=== PATIENT | male | born 2000 | race Two or more races ===

== ENCOUNTER 2023-12-12 07:12 | Inpatient (IN) | payer SELFPAY ==
[~2023-12-12] VITALS: Ht 182.9 cm; Wt 80.6 kg
[2023-12-12 07:50] LABS: BASOPHILS % (AUTO) 2.5 % (0.0-2.0); EOSINOPHILS % (AUTO) 0.7 % (1.0-6.0); HEMATOCRIT 44.9 % (41-53); HEMOGLOBIN 15.5 g/dL (13.5-17.5); LYMPHOCYTES # (AUTO) 1.3 K/uL (1.0-4.8); MEAN CORPUSCULAR HEMOGLOBIN 31.7 pg (26.0-34.0); MEAN CORPUSCULAR HGB CONC 34.6 G/dL (31.0-37.0); MEAN CORPUSCULAR VOLUME 92 fL (80-100); MONOCYTES # (AUTO) 0.4 K/uL (0.1-1.0); MONOCYTES % (AUTO) 6.5 % (2.0-9.0); NEUTROPHILS # (AUTO) 4.9 K/uL (1.8-7.7); NEUTROPHILS % (AUTO) 71.3 % (40.0-70.0); PLATELET COUNT (AUTO) 207 K/uL (150-450); RED CELL DISTRIBUTION WIDTH 12.9 % (11.5-14.5); WHITE BLOOD COUNT (AUTO) 6.9 K/uL (4.5-11.0)
[2023-12-12 08:00] LABS: ANION GAP 14 mmol/L (8-16); CALCIUM, TOTAL 8.9 mg/dL (8.8-10.5); CARBON DIOXIDE 24 mmol/L (22-29); CHLORIDE 105 mmol/L (98-107); CREATININE 0.92 mg/dL (0.60-1.30); GLOMERULAR FILTR. RATE CALC > 60 mL/min (>60); GLUCOSE,RANDOM 111 mg/dL (70-110); POTASSIUM 3.6 mmol/L (3.5-5.1); SODIUM SERUM 143 mmol/L (136-145); UREA NITROGEN, BLOOD 4 mg/dL (7-18)
[2023-12-12 08:04] LABS: ALCOHOL, URINE DRUG SCREEN POSITIVE (NEGATIVE); AMPHET/METH SCREEN,URINE NEGATIVE (NEGATIVE); BARBITURATE SCREEN, URINE NEGATIVE (NEGATIVE); BENZODIAZEPINES SCREEN,URINE NEGATIVE (NEGATIVE); CANNABINOID SCREEN,URINE POSITIVE (NEGATIVE); COCAINE SCREEN,URINE POSITIVE (NEGATIVE); METHADONE SCREEN, URINE NEGATIVE (NEGATIVE); OPIATE SCREEN,URINE NEGATIVE (NEGATIVE); PHENCYCLIDINE SCREEN,URINE NEGATIVE (NEGATIVE)
[2023-12-12 08:13] LABS: ALCOHOL, BLOOD (SERUM) 197 mg/dL (0-10)
[2023-12-12 08:50] LABS: COVID AG,FIA SOURCE NASAL SWAB
[2023-12-12 09:10] LABS: SARS-COV2 (COVID) ANTIGEN,FIA Negative (Negative)
[2023-12-12] MEDS ORDERED: ZOLPIDEM TARTRATE 10 MG TABLET PO PRN (10:45)
[2023-12-12] MEDS ORDERED: HALOPERIDOL 5 MG TABLET PO PRN (10:45)
[2023-12-12] MEDS ORDERED: LORazepam 2 MG TABLET PO PRN (10:45)
[2023-12-12 12:41] VITALS: BP 128/72; PULSE 88; RESP 18; TEMP 98.2; O2SAT 98
[2023-12-12 13:44] VITALS: BP 119/78; PULSE 89; RESP 18; TEMP 97.8; O2SAT 96
[2023-12-12] MEDS ORDERED: ALBUTEROL SULFATE HFA 90 MCG/PUFF 8 GM INHALER IH PRN (18:45)
[2023-12-12] MEDS: BACITRACIN 28 GM OINTMENT TP SCH (19:18)
[2023-12-12 20:15] VITALS: BP 134/73; PULSE 63; RESP 16; TEMP 98.1; O2SAT 97
[2023-12-13 08:49] VITALS: BP 116/67; PULSE 66; RESP 17; TEMP 97.2; O2SAT 98
[2023-12-13] MEDS ORDERED: IBUPROFEN 400 MG TABLET PO PRN (13:15)
[2023-12-13] MEDS ORDERED: NICOTINE 14 MG/24 HOUR PATCH TD PRN (13:15)
[2023-12-13] MEDS ORDERED: ONDANSETRON HCL 4 MG TABLET PO PRN (13:15)
[2023-12-13] MEDS ORDERED: CloNIDine HCL 0.1 MG TABLET PO PRN (13:15)
[2023-12-13] MEDS ORDERED: ALBUTEROL SULFATE HFA 90 MCG/PUFF 8 GM INHALER IH PRN (13:15)
[2023-12-13] MEDS ORDERED: MAGNESIUM HYDROXIDE SUSPENSION 30 ML UDCUP PO PRN (13:15)
[2023-12-13] MEDS ORDERED: MAG HYDROX/ALUMINUM HYD/SIMETH ES 30 ML SUSPENSION UDCUP PO PRN (13:15)
[2023-12-13] MEDS ORDERED: DOCUSATE SODIUM 100 MG CAPSULE PO PRN (13:15)
[2023-12-13] MEDS ORDERED: PETROLATUM,WHITE 28 GM JELLY TP PRN (13:15)
[2023-12-13] MEDS ORDERED: LOPERAMIDE HCL 2 MG CAPSULE PO PRN (13:15)
[2023-12-13] MEDS ORDERED: GuaiFENesin/D-METHORPHAN [SUGAR-FREE] 200-20MG/10 ML SYRUP UDCUP PO PRN (13:15)
[2023-12-13] MEDS: ACETAMINOPHEN 325 MG TABLET PO PRN (16:48)
[2023-12-13 16:49] VITALS: RESP 16
[2023-12-13 17:49] VITALS: RESP 16
[2023-12-13 21:04] VITALS: BP 135/73; PULSE 58; RESP 18; TEMP 97.7; O2SAT 100
[2023-12-14 09:06] LABS: HEMOGLOBIN A1C 4.9 % (3.8-5.6)
[2023-12-14 09:13] LABS: CHOL/HDL RATIO 2.4 (4.2-7.3); THYROID STIMULATING HORMONE 0.95 uIU/mL (0.36-3.74)
[2023-12-14 09:22] VITALS: BP 127/79; PULSE 66; RESP 18; TEMP 96.8; O2SAT 98
== END 2023-12-14 12:45 | disposition home or self-care (01) | DRG 881 ==
LOC: EMS 07:13 → B2S 10:54 → EMS 11:58
PROVIDERS: ADMIT Psychiatry & Neurology Psychiatry; ATTEND Psychiatry & Neurology Psychiatry
PROC: GZHZZZZ Group Psychotherapy (ICD-10-PCS; principal; 2023-12-13)
PROC: GZ51ZZZ Individual Psychotherapy, Behavioral (ICD-10-PCS; 2023-12-13)
DX: F32.9 Major depressive disorder, single episode, unspecified (principal); R45.851 Suicidal ideations; F10.10 Alcohol abuse, uncomplicated; Z20.822 Contact with and (suspected) exposure to COVID-19; G47.00 Insomnia, unspecified; F12.90 Cannabis use, unspecified, uncomplicated; F14.90 Cocaine use, unspecified, uncomplicated; Y90.6 Blood alcohol level of 120-199 mg/100 ml; Z91.148 Patient's other noncompliance with medication regimen for other reason
CPT/HCPCS: 80048; 80061; 80307; 83036; 84443; 85025; 99285; G0480